=== PATIENT | female | born 1955 | race Caucasian/White ===

== ENCOUNTER 2024-03-31 19:29 | Inpatient (IN) | payer MEDICARE, OTHER ==
[~2024-03-31] VITALS: Ht 170.2 cm; Wt 100.7 kg
[2024-03-31 22:37] LABS: CALCIUM, SERUM 8.2 mg/dL (8.5-10.1); CARBON DIOXIDE 22 mmol/L (21-32); CHLORIDE 108 mmol/L (98-107); CREATININE 0.5 mg/dL (0.6-1.3); GLUCOSE 108 mg/dL (74-106); POTASSIUM 5.6 mmol/L (3.5-5.1); SODIUM SERUM 138 mmol/L (136-145); UREA NITROGEN, BLOOD 16 mg/dL (7-18)
[2024-03-31 22:41] LABS: ALANINE AMINOTRANSFERASE 25 U/L (12-78); ALBUMIN 3.1 g/dL (3.4-5.0); ALCOHOL, BLOOD < 3 mg/dL (0-10); ALKALINE PHOSPHATASE 67 U/L (46-116); ASPARTATE AMINOTRANSFERASE 75 U/L (15-37); BILIRUBIN,DIRECT 0.1 mg/dL (0.0-0.2); BILIRUBIN,TOTAL 0.6 mg/dL (0.2-1.0); TOTAL PROTEIN, SERUM 8.2 g/dL (6.4-8.2)
[2024-03-31 22:46] LABS: BASOPHILS # (AUTO) 0.1 K/uL (0.0-0.2); BASOPHILS % (AUTO) 0.7 % (0.0-2.0); EOSINOPHILS # (AUTO) 0.1 K/uL (0.0-0.7); EOSINOPHILS % (AUTO) 1.5 % (0.0-6.0); HEMATOCRIT 39 % (33-45); HEMOGLOBIN 13.2 g/dL (11.5-14.8); LYMPHOCYTES % (AUTO) 29.3 % (20.0-44.0); MEAN CORPUSCULAR HEMOGLOBIN 33 PG (26.0-33.0); MEAN CORPUSCULAR HGB CONC 34 g/dl (31.0-36.0); MEAN CORPUSCULAR VOLUME 98 fL (82-100); MONOCYTES # (AUTO) 0.7 K/uL (0.1-1.30); MONOCYTES % (AUTO) 10.7 % (2.0-12.0); NEUTROPHILS % (AUTO) 57.8 % (43.0-81.0); PLATELET COUNT (AUTO) 212 K/uL (150-450); RED BLOOD CELL COUNT(AUTO) 4.04 MIL/uL (4.0-5.2); RED CELL DISTRIBUTION WIDTH 15.2 % (11.5-15.0); WHITE BLOOD COUNT (AUTO) 6.9 K/uL (4.3-11.0)
[2024-03-31 22:52] LABS: ACETAMINOPHEN <10 ug/ml (10-30); SALICYLATE < 0.2 mg/dL (2.8-20.0)
[2024-03-31 23:53] LABS: APPEARANCE,URINE CLOUDY (CLEAR); BILIRUBIN,URINE NEGATIVE (NEGATIVE); BLOOD, URINE NEGATIVE Ery/uL (NEGATIVE); COLOR,URINE YELLOW (YELLOW); KETONES,URINE NEGATIVE (NEGATIVE); LEUKOCYTE ESTERASE ,URINE 1+ (NEGATIVE); NITRITE, URINE POSITIVE (NEGATIVE); PROTEIN,URINE NEGATIVE (NEGATIVE); UGLUCOSE NEGATIVE (NEGATIVE)
[2024-04-01 00:20] LABS: ADD URINE CULTURE YES; BACTERIA,URINE 3+ /HPF (None Seen); RBC,URINE NONE SEEN /HPF (0-2); WBC,URINE NONE SEEN /HPF (0-3)
[2024-04-01] MEDS: VANCOMYCIN 1 GM in IV D5W 250 ML IV ONE (00:30)
[2024-04-01] MEDS: CEFEPIME 1 GM in IV D5W 50 ML IV ONE (00:30)
[2024-04-01] MEDS ORDERED: CEFEPIME 1 GM VIAL ONE (00:45)
[2024-04-01] MEDS ORDERED: VANCOMYCIN 1 GM /D5W 250 ML PB IV ONE (00:45)
[2024-04-01 01:06] LABS: AMPHETAMINE, URINE NEGATIVE (NEGATIVE); BARBITURATE, URINE NEGATIVE (NEGATIVE); BENZODIAZEPINE, URINE POSITIVE (NEGATIVE); CANNABINOID, URINE NEGATIVE (NEGATIVE); COCCAINE, URINE NEGATIVE (NEGATIVE); OPIATE, URINE NEGATIVE (NEGATIVE); PHENCYCLIDINE SCREEN,URINE NEGATIVE (NEGATIVE)
[2024-04-01 01:08] LABS: POTASSIUM 4.1 mmol/L (3.5-5.1)
[2024-04-01 01:09] LABS: CALCIUM, SERUM 8.7 mg/dL (8.5-10.1); CREATININE 0.6 mg/dL (0.6-1.3)
[2024-04-01] MEDS ORDERED: MAGNESIUM HYDROXIDE 30 ML UDC PO PRN ×2 (02:00→10:30)
[2024-04-01] MEDS ORDERED: ACETAMINOPHEN 325 MG TABLET PO PRN ×2 (02:00→10:30)
[2024-04-01] MEDS ORDERED: ONDANSETRON HCL/PF 4 MG/2 ML VIAL IVP PRN (02:00)
[2024-04-01] MEDS ORDERED: MAG HYDROX/AL HYDROX/SIMETH 30 ML UDC PO PRN (02:00)
[2024-04-01] MEDS ORDERED: Z GUARD REMEDY 4 OZ OINT TP PRN (02:00)
[2024-04-01] MEDS: IV NS 0.9% 1,000 ML IV PRN (05:10)
[2024-04-01 07:52] LABS: BASOPHILS # (AUTO) 0.1 K/uL (0.0-0.2); BASOPHILS % (AUTO) 0.8 % (0.0-2.0); EOSINOPHILS # (AUTO) 0.1 K/uL (0.0-0.7); EOSINOPHILS % (AUTO) 2.2 % (0.0-6.0); HEMATOCRIT 35 % (33-45); HEMOGLOBIN 11.7 g/dL (11.5-14.8); LYMPHOCYTES # (AUTO) 2.6 K/uL (0.8-4.8); LYMPHOCYTES % (AUTO) 41.3 % (20.0-44.0); MEAN CORPUSCULAR HEMOGLOBIN 33 PG (26.0-33.0); MEAN CORPUSCULAR HGB CONC 34 g/dl (31.0-36.0); MEAN CORPUSCULAR VOLUME 98 fL (82-100); MONOCYTES # (AUTO) 0.7 K/uL (0.1-1.30); MONOCYTES % (AUTO) 10.8 % (2.0-12.0); NEUTROPHILS # (AUTO) 2.9 K/uL (1.8-8.9); NEUTROPHILS % (AUTO) 44.9 % (43.0-81.0); PLATELET COUNT (AUTO) 178 K/uL (150-450); RED BLOOD CELL COUNT(AUTO) 3.54 MIL/uL (4.0-5.2); RED CELL DISTRIBUTION WIDTH 15.3 % (11.5-15.0); WHITE BLOOD COUNT (AUTO) 6.4 K/uL (4.3-11.0)
[2024-04-01] MEDS ORDERED: LEVO25TA7 PO (07:57)
[2024-04-01] MEDS ORDERED: AUSTEDO PO (07:57)
[2024-04-01] MEDS ORDERED: FURO-145 PO (07:57)
[2024-04-01] MEDS ORDERED: MAGN200T4 PO (07:57)
[2024-04-01] MEDS ORDERED: CYAN-51 PO (07:57)
[2024-04-01] MEDS ORDERED: ACET-868 PO (07:57)
[2024-04-01] MEDS ORDERED: CRAN500T3 PO (07:57)
[2024-04-01] MEDS ORDERED: BUSP7.5T7 PO (07:57)
[2024-04-01] MEDS ORDERED: NA P133E RC (07:57)
[2024-04-01] MEDS ORDERED: DOCU250C14 PO (07:57)
[2024-04-01] MEDS ORDERED: BISA10SU11 RC (07:57)
[2024-04-01] MEDS ORDERED: ASPI-1169 PO (07:57)
[2024-04-01] MEDS ORDERED: PRAZ1CAP5 PO (07:58)
[2024-04-01] MEDS ORDERED: MELA5TAB PO (07:58)
[2024-04-01] MEDS ORDERED: BUDE10.2 IH (07:58)
[2024-04-01] MEDS ORDERED: POLY17PO4 PO (07:58)
[2024-04-01] MEDS ORDERED: POTA10CA43 PO (07:58)
[2024-04-01] MEDS ORDERED: MAGN400O6 PO (07:58)
[2024-04-01] MEDS ORDERED: OXYC10TA49 PO (07:58)
[2024-04-01] MEDS ORDERED: VITA1TAB37 PO (07:58)
[2024-04-01] MEDS ORDERED: MINE454O3 TP (07:58)
[2024-04-01] MEDS ORDERED: CHOL100043 PO (07:58)
[2024-04-01] MEDS ORDERED: CHOL4PAC9 PO (07:58)
[2024-04-01] MEDS ORDERED: SERT50TA PO (07:58)
[2024-04-01] MEDS ORDERED: VALE150C PO (07:58)
[2024-04-01] MEDS ORDERED: DIAZ2TAB PO (07:58)
[2024-04-01] MEDS ORDERED: NALO4SPR NS (07:58)
[2024-04-01] MEDS ORDERED: PROG100C15 PO (07:58)
[2024-04-01] MEDS ORDERED: OMEP20CA15 PO (07:58)
[2024-04-01 10:26] LABS: ALBUMIN 2.7 g/dL (3.4-5.0); CALCIUM, SERUM 8.9 mg/dL (8.5-10.1); CREATININE 0.4 mg/dL (0.6-1.3); MAGNESIUM 2.2 mg/dL (1.8-2.4); PHOSPHORUS 3.9 mg/dL (2.5-4.9); POTASSIUM 4.2 mmol/L (3.5-5.1)
[2024-04-01] MEDS ORDERED: HOME MED MISCELLANEOUS XX SCH (10:30)
[2024-04-01] MEDS ORDERED: BISACODYL SUPP (10 MG) 10 MG/SUPP.RECT SUPP.RECT RC PRN (10:30)
[2024-04-01] MEDS ORDERED: PROGESTERONE 100 MG XX SCH (10:30)
[2024-04-01] MEDS ORDERED: NA PHOS,M-B/NA PHOS,DI-BA 1 EA ENEMA RC PRN (10:30)
[2024-04-01] MEDS: CEFEPIME 1 GM in IV D5W 50 ML IV SCH (11:29)
[2024-04-01] MEDS ORDERED: PETROLATUM,WHITE PACKET 5 GM PACKET TP PRN (13:00)
[2024-04-01] MEDS: ALBUTEROL FS 2.5 MG/0.5 ML VIAL.NEB HHN SCH (13:30)
[2024-04-01] MEDS ORDERED: HYDROCODONE/APAP 5/325MG TABLET ONE (13:32)
[2024-04-01] MEDS: HYDROCODONE/APAP 5/325MG TABLET PO PRN (13:34)
[2024-04-01] MEDS ORDERED: ALBUTEROL FS 2.5 MG/0.5 ML VIAL.NEB ONE (14:03)
[2024-04-01 16:00] VITALS: BP 128/63; TEMP 97.8; TEMP 97.9; O2SAT 100; O2SAT 97
[2024-04-01] MEDS: ASPIRIN 81 MG TAB.CHEW PO SCH (17:12)
[2024-04-01] MEDS: FUROSEMIDE 20 MG TABLET PO SCH (17:12)
[2024-04-01] MEDS: CHOLESTYRAMINE/ASPARTAME 4 G/PKT PACKET PO SCH (18:56)
[2024-04-01] MEDS: BUDESONIDE RESPULE INH 0.25 MG/2 ML AMPUL.NEB HHN SCH (19:30)
[2024-04-01 19:49] VITALS: O2SAT 96
[2024-04-01 20:00] VITALS: BP 125/40; TEMP 98.8; O2SAT 95
[2024-04-01 20:04] VITALS: O2SAT 98
[2024-04-01] MEDS: PRAZOSIN HCL 1 MG CAPSULE PO SCH (22:37)
[2024-04-01] MEDS: DIAZEPAM 5 MG TABLET PO SCH (22:38)
[2024-04-02 07:30] VITALS: BP 117/53; TEMP 98.2; O2SAT 97
[2024-04-02] MEDS: CHOLECALCIFEROL 1,000 UNIT TABLET (VIT D3) PO SCH (09:02)
[2024-04-02] MEDS: CYANOCOBALAMIN 500 MCG TABLET PO SCH (09:05)
[2024-04-02] MEDS: MAGNESIUM OXIDE 400 MG TABLET PO SCH (09:05)
[2024-04-02] MEDS: DOCUSATE SODIUM 250 MG CAPSULE PO SCH (09:05)
[2024-04-02] MEDS: VITAMIN B COMP W-C 1 TAB TABLET PO SCH (09:06)
[2024-04-02] MEDS: SERTRALINE HCL 50 MG TABLET PO SCH (09:06)
[2024-04-02] MEDS: POTASSIUM CHLORIDE 10 MEQ TABLET.SA PO SCH (09:13)
[2024-04-02] MEDS: busPIRone 5 MG TABLET PO SCH (09:13)
[2024-04-02] MEDS: POLYETHYLENE GLYCOL 3350 17 GM POWD.PACK PO SCH (09:13)
[2024-04-02] MEDS: LEVOTHYROXINE SODIUM 25 MCG TABLET PO SCH (09:23)
[2024-04-02 16:00] VITALS: BP 116/51; TEMP 98.2; O2SAT 97
[2024-04-02 21:02] VITALS: BP 133/49; TEMP 98.2; O2SAT 97
[2024-04-03 07:37] VITALS: O2SAT 97
[2024-04-03 09:00] VITALS: BP 136/54; TEMP 98.8; O2SAT 98
== END 2024-04-03 15:40 | DRG 689 ==
LOC: ER 19:38 → TRANSITION 04-01 03:53 → MED 04-01 15:11
PROVIDERS: ADMIT Nurse Practitioner Acute Care; ATTEND Nurse Practitioner Acute Care
DX: N39.0 Urinary tract infection, site not specified (principal); G92.8 Other toxic encephalopathy; E44.0 Moderate protein-calorie malnutrition; F29 Unspecified psychosis not due to a substance or known physiological condition; E87.5 Hyperkalemia; I10 Essential (primary) hypertension; E03.9 Hypothyroidism, unspecified; E66.9 Obesity, unspecified; E78.5 Hyperlipidemia, unspecified; G47.00 Insomnia, unspecified; Z20.822 Contact with and (suspected) exposure to COVID-19; B96.20 Unspecified Escherichia coli [E. coli] as the cause of diseases classified elsewhere; F39 Unspecified mood [affective] disorder; F32.A Depression, unspecified; Z73.6 Limitation of activities due to disability; E88.09 Other disorders of plasma-protein metabolism, not elsewhere classified; Z68.34 Body mass index [BMI] 34.0-34.9, adult; R60.0 Localized edema; J44.9 Chronic obstructive pulmonary disease, unspecified; Z96.642 Presence of left artificial hip joint
CPT/HCPCS: 36415; 71045-TC; 72170-TC; 73564-TC; 73610-TC; 80048-TC; 80076-TC; 81001; 82040-TC; 83735-TC; 84100-TC; 85025-TC; 87086-TC; 93970-TC; 94761-TC; 97110-TC; 97530-TC; G0378; G0480; J0692; J2405; J3370; J7030; J7060; J7070